=== PATIENT | female | born 1995 | race Two or more races ===

== ENCOUNTER 2024-02-27 23:27 | Emergency (ER) | payer OTHER ==
[~2024-02-27] VITALS: Ht 152.4 cm; Wt 104.3 kg
[2024-02-28] MEDS ORDERED: KETOROLAC TROMETHAMINE 60 MG VIAL IM STA (02:48)
[2024-02-28] MEDS ORDERED: KETOROLAC TROMETHAMINE 60 MG VIAL IM ONE (02:52)
== END 2024-02-28 04:18 ==
LOC: ER 23:29
DX: M25.511 Pain in right shoulder (principal)

== ENCOUNTER 2024-03-11 09:07 | Emergency (ER) | payer OTHER ==
[~2024-03-11] VITALS: Ht 152.4 cm; Wt 103.0 kg
[2024-03-11 11:42] LABS: HEMATOCRIT 37.4 % (36.0-45.00); HEMOGLOBIN 12.5 g/dL (12.0-15.00); MEAN CELL VOLUME 78.2 fL (80.00-100.00); MEAN CORPUSCULAR HEMOGLOBIN 26.1 pg (27.00-32.0); MEAN CORPUSCULAR HGB CONC 33.4 g/dl (32.0-36.0); PLATELET COUNT 282 K/uL (150-450); RED BLOOD COUNT 4.79 M/uL (4.00-6.00); RED CELL DISTRIBUTION WIDTH 13.9 % (11.5-14.5)
[2024-03-11 12:02] LABS: PH,URINE 7.5 (5.0-8.0); URINE BILIRRUBIN Negative (NEGATIVE); URINE BLOOD Large; URINE COLOR Yellow; URINE GLUCOSE Negative (NEGATIVE); URINE KETONE Negative (NEGATIVE); URINE LEUKOCYTE Negative; URINE NITRATE Negative; URINE PROTEIN Negative (NEGATIVE); URINE UROBILINOGEN 0.2 E.U./dl
[2024-03-11 12:05] LABS: URINE BACTERIA 331.2 uL (0.0-1933); URINE EPITHELIAL CELLS 16.8 uL (0.0-38.8); URINE RBC 30.6 uL (0.0-20.8); URINE WBC 21.3 uL (0.0-23.2)
[2024-03-11 12:23] LABS: CREATININE SERUM 0.52 mg/dL (0.55-1.02); GFR 138.46; POTASSIUM 3.76 mEq/L (3.5-5.1)
[2024-03-11 12:53] LABS: URINE APPEARANCE CLEAR
[2024-03-11 12:54] LABS: URINE CRYSTALS FEW /HPF
== END 2024-03-11 16:18 | disposition home or self-care (01) ==
LOC: ER 09:08
PROVIDERS: Emergency Medicine
DX: O20.9 Hemorrhage in early pregnancy, unspecified (principal); Z3A.11 11 weeks gestation of pregnancy

== ENCOUNTER 2024-03-25 08:39 | Outpatient (CLI) | payer OTHER | END 2024-03-25 08:40 | disposition home or self-care (01) | LOC: PRENATAL 08:39 | PROVIDERS: ATTEND Obstetrics & Gynecology Maternal & Fetal Medicine | DX: O36.80X0 Pregnancy with inconclusive fetal viability, not applicable or unspecified (principal); Z36.82 Encounter for antenatal screening for nuchal translucency; O10.019 Pre-existing essential hypertension complicating pregnancy, unspecified trimester; O99.210 Obesity complicating pregnancy, unspecified trimester; Z14.8 Genetic carrier of other disease ==

== ENCOUNTER 2024-05-13 13:33 | Outpatient (CLI) | payer OTHER | END 2024-05-13 13:34 | disposition home or self-care (01) | LOC: PRENATAL 13:33 | PROVIDERS: ATTEND Obstetrics & Gynecology Maternal & Fetal Medicine | DX: O35.3XX0 Maternal care for (suspected) damage to fetus from viral disease in mother, not applicable or unspecified (principal); O44.00 Complete placenta previa NOS or without hemorrhage, unspecified trimester; O10.019 Pre-existing essential hypertension complicating pregnancy, unspecified trimester; Z14.8 Genetic carrier of other disease; Z3A.20 20 weeks gestation of pregnancy ==

== ENCOUNTER 2024-07-08 10:03 | Outpatient (CLI) | payer OTHER | END 2024-07-08 10:04 | disposition home or self-care (01) | LOC: PRENATAL 10:03 | PROVIDERS: ATTEND Obstetrics & Gynecology Maternal & Fetal Medicine | DX: O26.849 Uterine size-date discrepancy, unspecified trimester (principal); O10.019 Pre-existing essential hypertension complicating pregnancy, unspecified trimester; O99.210 Obesity complicating pregnancy, unspecified trimester; Z14.8 Genetic carrier of other disease; O99.019 Anemia complicating pregnancy, unspecified trimester; Z3A.28 28 weeks gestation of pregnancy ==

== ENCOUNTER 2024-08-18 14:07 | Outpatient (CLI) | payer OTHER | END 2024-08-18 14:12 | disposition home or self-care (01) | LOC: PRENATAL 14:07 | PROVIDERS: ATTEND Obstetrics & Gynecology Maternal & Fetal Medicine | DX: O26.849 Uterine size-date discrepancy, unspecified trimester (principal); O36.8199 Decreased fetal movements, unspecified trimester, other fetus; O10.019 Pre-existing essential hypertension complicating pregnancy, unspecified trimester; O99.210 Obesity complicating pregnancy, unspecified trimester; Z14.8 Genetic carrier of other disease; Z3A.33 33 weeks gestation of pregnancy ==

== ENCOUNTER 2024-09-18 15:00 | Inpatient (IN) | payer OTHER ==
[~2024-09-18] VITALS: Ht 152.4 cm; Wt 109.8 kg
[2024-09-18 11:28] LABS: URINE APPEARANCE Clear; URINE BILIRRUBIN Negative (NEGATIVE); URINE BLOOD Negative; URINE COLOR Yellow; URINE GLUCOSE Negative (NEGATIVE); URINE KETONE Negative (NEGATIVE); URINE LEUKOCYTE Moderate; URINE NITRATE Negative; URINE PROTEIN Negative (NEGATIVE); URINE UROBILINOGEN 0.2 E.U./dl
[2024-09-18 11:32] LABS: URINE BACTERIA 1861.5 uL (0.0-1933); URINE EPITHELIAL CELLS 56.8 uL (0.0-38.8); URINE RBC 2.2 uL (0.0-20.8); URINE WBC 136.7 uL (0.0-23.2)
[2024-09-18 11:33] LABS: HEMOGLOBIN 11.5 g/dL (12.0-15.00); MEAN CELL VOLUME 76.1 fL (80.00-100.00); MEAN CORPUSCULAR HEMOGLOBIN 25.1 pg (27.00-32.0); PLATELET COUNT 228 K/uL (150-450)
[2024-09-18 12:01] LABS: INR 0.94; PARTIAL THROMBOPLASTIN TIME 24.9 SECONDS (22.0-34.0); PROTHROMBIN TIME 10.3 SECONDS (9.0-11.5)
[2024-09-18 12:01] LABS: URINE CAST 0.58 uL (0.0-1.40)
[2024-09-18 12:03] LABS: ALBUMIN 2.9 gm/dL (3.4-5.0); BILIRUBIN TOTAL 0.27 mg/dL (0.3-1.2); CALCIUM 9.3 mg/dL (8.5-10.1); CREATININE SERUM 0.38 mg/dL (0.55-1.02); GFR 198.85; GLOBULINA 3.7 G/DL (2.4-3.5); POTASSIUM 4.04 mEq/L (3.5-5.1); TOTAL PROTEIN 6.6 gm/dL (6.4-8.2); URIC ACID 4.1 mg/dL (2.5-7.5)
[2024-09-22] VITALS (11 sets, daily range): BP systolic 117–136; BP diastolic 60–76
[2024-09-22 09:04] LABS: URINE APPEARANCE Clear; URINE BILIRRUBIN Negative (NEGATIVE); URINE BLOOD Negative; URINE COLOR Yellow; URINE GLUCOSE Negative (NEGATIVE); URINE KETONE Negative (NEGATIVE); URINE LEUKOCYTE Negative; URINE NITRATE Negative; URINE PROTEIN Negative (NEGATIVE); URINE UROBILINOGEN 0.2 E.U./dl
[2024-09-22 09:08] LABS: URINE EPITHELIAL CELLS 11.5 uL (0.0-38.8); URINE WBC 12.8 uL (0.0-23.2)
[2024-09-22] MEDS ORDERED: OXYTOCIN 500 ML IV SCH (09:15)
[2024-09-22 09:24] LABS: HEMOGLOBIN 11.6 g/dL (12.0-15.00); MEAN CELL VOLUME 75.3 fL (80.00-100.00); MEAN CORPUSCULAR HGB CONC 33.2 g/dl (32.0-36.0); PLATELET COUNT 232 K/uL (150-450); RED BLOOD COUNT 4.65 M/uL (4.00-6.00); RED CELL DISTRIBUTION WIDTH 16.5 % (11.5-14.5)
[2024-09-22 09:58] LABS: INR < 0.93; PARTIAL THROMBOPLASTIN TIME 25.6 SECONDS (22.0-34.0); PROTHROMBIN TIME 10.1 SECONDS (9.0-11.5)
[2024-09-22 10:08] LABS: FIBRINOGEN 549 mg/dL (187.0-446.0)
[2024-09-22 10:21] LABS: ALBUMIN 2.8 gm/dL (3.4-5.0); BILIRUBIN TOTAL 0.25 mg/dL (0.3-1.2); CREATININE SERUM 0.41 mg/dL (0.55-1.02); GFR 182.15; GLOBULINA 3.6 G/DL (2.4-3.5); POTASSIUM 4.25 mEq/L (3.5-5.1); TOTAL PROTEIN 6.4 gm/dL (6.4-8.2); URIC ACID 4.2 mg/dL (2.5-7.5)
[2024-09-22] MEDS ORDERED: MORPHINE SULFATE 4 MG/ML CARTRIDGE IV ONE (10:45)
[2024-09-22] MEDS ORDERED: ADULT LOW DOSE81 M1 PO (12:15)
[2024-09-22] MEDS ORDERED: LABETALOL HCL100 MG PO (12:16)
[2024-09-22] MEDS ORDERED: PRENATAL + DHA1 EAC1 PO (12:16)
[2024-09-22] MEDS ORDERED: CHLORHEXIDINE GLUCONATE 120 ML BOTTLE TOP ONE ×2 (18:12→23:00)
[2024-09-22] MEDS ORDERED: OXYTOCIN 20 UNITS/1000ML RL PIGGYBAG IV ONE (18:12)
[2024-09-22] MEDS ORDERED: ERYTHROMYCIN BASE OPHT 1GM EACH TUBE OP ONE ×2 (18:12→23:00)
[2024-09-22] MEDS ORDERED: LIDOCAINE HCL 1% 10ML VIAL ONE (18:13)
[2024-09-22] MEDS ORDERED: OXYTOCIN 1,000 ML IV SCH ×2 (23:00→23:45)
[2024-09-22] MEDS ORDERED: LIDOCAINE HCL 1% 10ML VIAL PERCUT ONE (23:00)
[2024-09-22] MEDS ORDERED: ACETAMINOPHEN 500 MG GEL..CAP PO PRN (23:15)
[2024-09-23 00:10] VITALS: BP 125/62
[2024-09-23 01:10] VITALS: BP 131/81
[2024-09-23 08:22] LABS: MEAN CELL VOLUME 75.2 fL (80.00-100.00); MEAN CORPUSCULAR HGB CONC 33.3 g/dl (32.0-36.0); PLATELET COUNT 239 K/uL (150-450); RED BLOOD COUNT 4.39 M/uL (4.00-6.00); RED CELL DISTRIBUTION WIDTH 16.4 % (11.5-14.5)
[2024-09-23 08:49] VITALS: BP 115/70; O2SAT 98
[2024-09-23] MEDS ORDERED: PNV,CALCIUM 72/IRON/FOLIC ACID 1 TAB TABLET PO SCH (09:00)
[2024-09-23 16:00] VITALS: BP 111/71
[2024-09-24 00:33] VITALS: BP 139/72
[2024-09-24 08:33] VITALS: BP 148/87; O2SAT 98
[2024-09-24 13:17] VITALS: BP 127/84; O2SAT 99
[2024-09-24 16:00] VITALS: BP 129/70
== END 2024-09-24 18:27 | disposition home or self-care (01) | DRG 807 ==
LOC: LDR 09-22 06:17 → OB/GYN 09-22 15:00
PROVIDERS: Obstetrics & Gynecology; ADMIT Obstetrics & Gynecology; ATTEND Obstetrics & Gynecology
PROC: 10E0XZZ Delivery of Products of Conception, External Approach (ICD-10-PCS; principal; 2024-09-22)
PROC: 0KQM0ZZ Repair Perineum Muscle, Open Approach (ICD-10-PCS; 2024-09-22)
PROC: 3E033VJ Introduction of Other Hormone into Peripheral Vein, Percutaneous Approach (ICD-10-PCS; 2024-09-22)
PROC: 4A1HXCZ Monitoring of Products of Conception, Cardiac Rate, External Approach (ICD-10-PCS; 2024-09-22)
DX: O70.1 Second degree perineal laceration during delivery (principal); Z37.0 Single live birth; Z3A.39 39 weeks gestation of pregnancy